=== PATIENT | female | born 1980 | race Caucasian/White ===

== ENCOUNTER 2019-11-28 18:39 | Emergency (ER) | payer OTHER ==
[~2019-11-28] VITALS: Ht 152.4 cm; Wt 81.7 kg
[2019-11-28 20:32] VITALS: BP 179/107
== END 2019-11-28 20:34 | disposition home or self-care (01) ==
LOC: M.ERS 18:39
DX: M79.631 Pain in right forearm (principal); I10 Essential (primary) hypertension; F41.9 Anxiety disorder, unspecified; F17.210 Nicotine dependence, cigarettes, uncomplicated; V89.2XXA Person injured in unspecified motor-vehicle accident, traffic, initial encounter; Y93.89 Activity, other specified; Y92.89 Other specified places as the place of occurrence of the external cause; Y99.8 Other external cause status